=== PATIENT | male | born 1970 | race Asian ===

== ENCOUNTER 2021-02-13 14:14 | Emergency (ER) | payer OTHER, SELFPAY ==
[2021-02-13 14:14] VITALS: BP 156/75; PULSE 69; RESP 16; TEMP 36.6; O2SAT 100; BMI 29.2
--- NOTE | 2021-02-13 14:23 | EKG12_ITS ---
Test Reason : CP Blood Pressure : / mmHG Vent. Rate : 069 BPM Atrial Rate : 069 BPM P-R Int : 164 ms QRS Dur : 082 ms QT Int : 408 ms P-R-T Axes : 044 029 026 degrees QTc Int : 437 ms Normal sinus rhythm Normal ECG Confirmed by SOHAN HERNADEZ, JESUS ([id number]), website/blog editor RACHAEL SMALLS ([id number]) on 02/14/2021 12:47:34 PM Referred By: GALLITO/EDWIN Confirmed By:JESUS PARRY MD
[2021-02-13 14:29] VITALS: O2SAT 98
--- NOTE | 2021-02-13 14:29 | NURSING ---
NO OLD EKGS
[2021-02-13 14:32] LABS: Absolute Lymphocyte Count 2.13 X10^3/uL (0.83-4.51); Basophil# 0.04 X10^3/uL; Basophil% 0.7 % (0-1); Eosinophil# 0.17 X10^3/uL; Eosinophils% 2.9 % (0-5); Hematocrit 45.8 % (40-54); Hemoglobin 15.5 g/dL (13.0-16.5); Lymphocyte # 2.13 X10^3/ul (4.0); Lymphocyte % 36.6 % (19-41); Mean Corp Hgb Conc 33.8 g/dL (32-36); Mean Corpuscular Hgb 29.9 pg (27.0-32.0); Mean Corpuscular Volume 88.4 fL (80-94); Mean Platelet Vol. 10.2 fl (6.2-12.0); Monocyte# 0.47 X10^3/uL; Monocyte% 8.1 % (0-10); NRBC Flagged by Analyzer 0 % (0-5); Neutrophil % 51.5 % (47-70); Platelet Count 210 K/mm3 (150-450); RBC Distribution Width CV 12.8 % (11.6-14.6); Red Blood Count 5.18 M/mm3 (4.6-6.2); White Blood Count 5.8 K/mm3 (4.4-11.0)
--- NOTE | 2021-02-13 14:35 | RAD_ITS ---
STUDY: X-RAY CHEST REASON FOR EXAM: Male, 51 years old. Chest pain TECHNIQUE: Single AP portable view of the chest. COMPARISON: None. FINDINGS: EKG electrodes are seen. The lungs are clear and expanded. There is no demonstrated pleural abnormality. Normal size heart. Normal mediastinum and louise. Normal visualized pulmonary arteries. Normal visualized aortic arch and descending thoracic aorta. Normal visualized thoracic spine. Normal visualized ribs, clavicles, and shoulders. There is no demonstrated abnormality of the visualized soft tissue structures of the upper abdomen. RAD/Chest 1 View (Portable) IMPRESSION: Normal x-ray examination of the chest. Electronically Signed: Xavi Gutierrez MD at 14:47 EDT , Service support ,
[2021-02-13 14:50] LABS: Anion Gap 5 (5-15); BUN 17 mg/dL (7-18); BUN/Creat Ratio 16.5 RATIO (10-20); Calcium,Total 9.3 mg/dL (8.5-10.1); Chloride 107 mmol/L (98-107); Creatinine, Serum 1.03 mg/dL (0.70-1.30); EST Glomerular Filtration Rate 80 mL/min (>60); Est Glom Filt Rate - Afr Amer 97 mL/min (>60); Estimated Creatinine Clearance 74.85 ml/min; Glucose 81 mg/dL (74-106); Potassium 3.6 mmol/L (3.5-5.1); Sodium Level 140 mmol/L (136-145)
--- NOTE | 2021-02-13 15:04 | ED.VISSUMM ---
- ER Visit Summary Date of Service: 02/13/21 Chief Complaint: Chest pain History of Present Illness: The patient is a 51 M with no primary care physician. He reports that he was playing tennis last night and had the onset of a substernal chest pain. States that ever since that time has had intermittent pain that last for seconds at a time is brought on by twisting his torso. States pain is sharp and 5 out of 10 at worst. He is pain-free currently. There is no worsening of the pain with exertion. Is relieved by remaining still. Denies any radiation of the pain. No associated nausea, vomiting, diaphoresis, shortness of breath. Physical Examination: Vitals: Stable. Afebrile. General: Well-nourished and well-developed. Head: Normocephalic atraumatic. Neck: Supple, no lymphadenopathy. No JVD. Nontender. Cardiovascular: Regular rate and rhythm. No murmurs. Respiratory: No respiratory distress. Clear to auscultation bilaterally. Abdominal: Soft, nontender, nondistended, normal bowel sounds. No guarding, rebound, or peritoneal signs. Back: Nontender. Extremities: Nontender, no edema. Skin: Normal color, no rash. Neurologic: Alert and oriented ?3. Cranial nerves II through XII are intact. Normal strength and sensation. Psych: Normal affect. Test Results: EKG is sinus at [address] changes. Troponin is negative. Chem-7 is normal. CBC is normal. Clinical Impression(s) from Imaging Studies Chest X-Ray 02/13/21 14:35 IMPRESSION: Normal x-ray examination of the chest. Electronically Signed: Xavi Gutierrez MD at 14:47 EDT , Service support , Emergency Department Course and Treatment: Patient is resting comfortably. He refused pain medications. Treatment Plan: Patient be discharged instructions to follow-up with Dr. Joe Summers in 3 to 5 days for another exam. He is given a prescription for [place] for severe pain. Return to the emergency department for any worsening symptoms. Disposition: To home in improved and stable condition. Impression: 1. Musculoskeletal chest pain. This note was generated with [employer] software. It may contain incorrect words, spelling, and punctuation that were not noted in review of the chart prior to signing ED Disposition - Plan for ED Patient: Instructions: ED Strain Chest Wall Prescriptions: Hydrocodone Bitart/Apap 5-325 [[place] 5MG-325MG] 1 tablet PO Q4H PRN PRN 2 Days #10 tablet PRN Reason: Pain Referrals: Joe Summers Jr., MD [HONORARY STAFF] - 3-5 Days
[2021-02-13 15:13] VITALS: BP 115/72; PULSE 72; RESP 18; O2SAT 98
== END 2021-02-13 15:23 | disposition home or self-care (01) ==
PROVIDERS: Emergency Provider Emergency Medicine
DX: R07.89 Other chest pain (principal)
CPT/HCPCS: 71045; 80048; 84484; 85025; 93005; 99283